=== PATIENT | female | born 1970 | race Caucasian/White ===

== ENCOUNTER 2022-04-15 10:01 | Emergency (ER) | payer OTHER ==
--- OUTSIDE RECORDS SUMMARY | 2022-04-15 10:19 | XMS REPORT | Continuity of Care Document ---
:1970 Author Organization [facility] t Address [address] [place] [address] Care Team Providers Name Role Phone [facility] Primary Care Physician Antelmo Rust Attending Clinician Unavailable Robbie Marina MD Attending Clinician Kayla Olivas Attending Clinician Unavailable Kayla Olivas Admitting Clinician Unavailable Payers Payer Name Policy Type Policy Number Effective Date Expiration Date Ernesto [employer]ONA CHO[employer] POS [id number] 2000 00:00:00 II Problems Condition Condition Condition Status Onset Resolution Last Treating Co mments Source Name Details Category Date Date Treatment Clinician Date Right knee Right knee Disease Active U T pain pain 09-07 Health 00:00: 00 Arthritis Arthritis Disease Active Last UT of right of right - Assessmen [facility] knee knee 00:00: t & Plan: 00 Formattin g of this note might be different from the original. Reassured patient today. Recommend trial of physical therapy home excise program may take Tylenol/o tonja-the-c ounter naproxen or Voltaren gel. Discussed possible CSI injection versus hyaluroni c acid. Has a good prognosis overall recommend home program first. Allergies, Adverse Reactions, Alerts Allergy Allergy Status Severity Reaction(s) Onset Inactive Treating Comm ents Source Name Type Date Date Clinician No Known DA Active [facility]17 [facility] 00:[facility]: d [facility] Social History Social Habit Start Date Stop Date Quantity Comments Source Exposure to Not sure [facility] SARS-CoV-2 (event) Tobacco use and 2021-09-07 2021-09-07 Smokeless tobacco [facility] exposure 00:00:00 00:00:00 non-user Alcohol intake 2021-09-07 2021-09-07 Current drinker of [facility] 00:00:00 00:00:00 alcohol (finding) Sex Ass[birth year] At [birth year] [facility] 00:00:00 00:00:00 Smoking Status Start Date Stop Date Source Never smoked tobacco [facility] Medications Ordered Filled Start Stop Current Ordering Indication Dosage Frequency Signature Comments Components Source Medication Medication Date Date Medication? Clinician (SIG) Name Name No known No No known [place] medications - medication He alth 11:51: s 27 Procedures This patient has no known procedures. Encounters Start End Encounter Admission Attending Care Care Encounter Source Date/Time Date/Time Type Type Clinicians Facility Department ID 2021-11-08 Inpatient Antelmo Rust [facility] [id number] [facility] 07:35:00 [id number] [facility] 2021-09-07 Outpatient [facility] [id number] [place] 10:04:04 Health 2021-11-08 2021-11-08 Emergency EM Antelmo Rust [facility] LA00 [id number] [facility] 07:34:00 08:19:00 62 [facility] 2021-09-07 2021-09-07 [facility] [id number] [place] 11:15:00 12:04:26 Visit NEAL Santiago [id number] H [facility] [id number] [id number] 2021-04-20 2021-04-20 Outpatient BETH Olivas [facility] JUAN [id number] [facility] 12:00:00 12:00:00 Kayla Mercado [facility] Results This patient has no known results.
[2022-04-15] MEDS ORDERED: ASPIRIN 81 MG CHEWABLE TABLET ONE (10:33)
[2022-04-15] MEDS ORDERED: NA CHLORIDE 0.9% 1,000 ML ONE (10:33)
[2022-04-15 11:11] LABS: Absolute Lymphocytes (CBC) 1.6 K/uL (0.7-4.9); Hematocrit 42.6 % (36.0-45.0); Lymphocytes % 17.7 % (15.3-44.8); MCV 86.7 fL (80-100); MPV 7.2 fL (7.6-11.3); RBC Red Blood Cell Count 4.91 M/uL (3.86-4.86)
[2022-04-15 11:12] LABS: Protime INR 1.05
--- NOTE | 2022-04-15 11:23 | RAD REPORT ---
EXAM DESCRIPTION: RAD - Chest Single View - 04/15/2022 11:15 am CLINICAL HISTORY: CHEST PAIN COMPARISON: Chest Pa And Lat (2 Views) dated 11/28/2018; CHEST PA AND LAT 2 VIEW dated 08/02/2014 FINDINGS: Lines: None. Lungs: No evidence of edema or pneumonia. Pleural: No significant pleural effusions or pneumothorax. Cardiac: The heart size is within normal limits. Mediastinum: Within normal limits. Bones: No acute fractures. Remote right-sided rib fractures. Other: None IMPRESSION: No acute cardiopulmonary disease.
[2022-04-15 11:27] LABS: Albumin 4.1 g/dL (3.4-5.0); Bilirubin Direct 0.1 mg/dL (0-0.2); Bilirubin Total 0.4 mg/dL (0.2-1.0); Potassium 3.8 mmol/L (3.5-5.1)
--- NOTE | 2022-04-15 12:02 | RAD REPORT ---
EXAM DESCRIPTION: CTAngio Aorta For Dissection - 04/15/2022 11:37 am CLINICAL HISTORY: CP COMPARISON: No comparisons TECHNIQUE: CTA of the chest, abdomen, and pelvis was performed to evaluate the aorta. MIPS were obta ined All CT scans are performed using dose optimization technique as appropriate and may include automated exposure control or mA/KV adjustment according to patient size. FINDINGS: Thorax: Chest Wall: No abnormal mass Lungs: No acute abnormality. Pleura: No effusions or pneumothorax. Amy/Mediastinum: No lymphadenopathy. Aorta/Pulmonary Arteries: Unremarkable Heart: Normal size. Abdomen/Pelvis: Liver: Hepatic steatosis. Biliary: No biliary ductal dilatation. Stomach: No significant focal abnormality. Duodenum: No significant focal abnormality. Pancreas: No significant abnormality. Spleen: No significant abnormality. Adrenal: No suspicious lesions. Kidney/ureter: No hydronephrosis. Bilateral nonobstructive nephrolithiasis . Retroperitoneum: No retroperitoneal adenopathy. Vascular: No aneurysm. Bowel: No significant focal abnormality. Normal appendix. Peritoneum: No ascites or free air. Small fat containing umbilical hernia. Bladder: Grossly unremarkable. Reproductive: No adnexal masses. Bones: No acute fracture. IMPRESSION: No evidence of aortic aneurysm or dissection. No acute findings within the chest, abdome n, or pelvis.
--- NOTE | 2022-04-15 13:18 | ER ---
Nurse's Notes [facility] Name: Rhea Jack Age: 51 yrs Sex: Female : 1970 Arrival Date: 04/15/2022 Time: 10:05 Bed Treatment Private MD: Diagnosis: Essential (primary) hypertension;Chest pain, unspecified Presentation: 04/15 10:26 Chief complaint: Patient states: Left neck/shoulder pain X 1 week. Last night I began ld1 to have chest pain - today I began feeling tingling sensation in my left arm. Coronavirus screen: At this time, the client does not indicate any symptoms associated with coronavirus-19. Ebola Screen: No symptoms or risks identified at this time. Initial Sepsis Screen: Does the patient meet any 2 criteria? No. Patient's initial sepsis screen is negative. Does the patient have a suspected source of infection? No. Patient's initial sepsis screen is negative. Risk Assessment: Do you want to hurt yourself or someone else? Patient reports no desire to harm self or others. Onset of symptoms was April 15, 2022. 10:26 Method Of Arrival: Ambulatory ld1 10:26 Acuity: TRINO 3 ld1 Triage Assessment: 10:28 General: Appears in no apparent distress. comfortable, Behavior is calm, cooperative, ld1 appropriate for age. Pain: Complains of pain in chest Pain does not radiate. Pain currently is 6 out of 10 on a pain scale. Quality of pain is described as throbbing. EENT: No signs and/or symptoms were reported regarding the EENT system. Neuro: Level of Consciousness is awake, alert, obeys commands, Oriented to person, place, time, situation. Cardiovascular: Reports chest pain, since tingling down left arm Capillary refill < 3 seconds Patient's skin is warm and dry. Rhythm is sinus tachycardia Chest pain is described as mild. Respiratory: Airway is patent Respiratory effort is even, unlabored. GI: Abdomen is flat, non-distended. : No signs and/or symptoms were reported regarding the genitourinary system. Derm: No signs and/or symptoms reported regarding the dermatologic system. Musculoskeletal: No signs and/or symptoms reported regarding the musculoskeletal system. Historical: - Allergies: 10: No Known Allergies; ld1 - Home Meds: 10:28 None [Active]; ld1 - PMHx: 10:28 None; ld1 - PSHx: 10:28 None; ld1 - Immunization history:: Adult Immunizations up to date, Client reports receiving the 2nd dose of the Covid vaccine. - Social history:: Smoking status: Patient denies any tobacco usage or history of. Patient/guardian denies using alcohol. - Family history:: not pertinent. Screenin:43 Abuse screen: Denies threats or abuse. Denies injuries from another. Nutritional ph screening: No deficits noted. Tuberculosis screening: No symptoms or risk factors identified. Fall Risk None identified. Assessment: 10:30 General: Appears in no apparent distress. comfortable, Behavior is calm, cooperative, mb9 appropriate for age. Pain: Complains of pain in chest Pain radiates to left shoulder Pain currently is 6 out of 10 on a pain scale. Quality of pain is described as pressure. 10:30 Neuro: Level of Consciousness is awake, alert, obeys commands, Oriented to person, mb9 place, time, situation, Appropriate for age Conference Service Coordinator are equal bilaterally Moves all extremities. Gait is steady, Speech is normal, Facial symmetry appears normal, Pupils are PERRLA, paresthesias in left arm. Cardiovascular: Heart tones S1 S2 present Pulses are all present. Rhythm is sinus tachycardia. Respiratory: Airway is patent Respiratory effort is even, unlabored, Respiratory pattern is regular, symmetrical, Breath sounds are clear bilaterally. GI: Abdomen is flat, Patient currently denies epigastric pain, nausea, pain. : No signs and/or symptoms were reported regarding the genitourinary system. EENT: No signs and/or symptoms were reported regarding the EENT system. Derm: Skin is pink, warm \T\ dry. Musculoskeletal: Range of motion: intact in all extremities. 11:30 Reassessment: pt taken to CT via wheelchair. mb9 12:15 General: Appears in no apparent distress. comfortable, Behavior is calm, cooperative, mb9 appropriate for age. Pain: Complains of pain in chest Pain radiates to left arm. Neuro: Level of Consciousness is awake, alert, obeys commands, Oriented to person, place, time, situation, Appropriate for age. Cardiovascular: Heart tones S1 S2 present Rhythm is regular. Respiratory: Airway is patent. Vital Signs: 10:26 BP 179 / 88; Pulse 102; Resp 18; Temp 98.2(O); Pulse Ox 100% on R/A; Weight 71.21 kg; ld1 Height 5 ft. 7 in. (170.18 cm); Pain 6/10; 10:30 BP 150 / 86; Pulse 101; Resp 18; Pulse Ox 100% on R/A; mb9 11:30 BP 148 / 90; Pulse 80; Resp 21; Pulse Ox 100% on R/A; mb9 12:16 BP 159 / 94; Pulse 80; Resp 14; Pulse Ox 100% ; mb9 10:26 Body Mass Index 24.59 (71.21 kg, 170.18 cm) ld1 ED Course: 10:05 Patient arrived in ED. rg4 10:22 Wade Smith MD is Attending Physician. monik 10:24 Blanca Hung, PEPE is Primary Nurse. mb9 10:28 Triage completed. ld1 10:28 Arm band placed on right wrist. ld1 11:06 EKG done, by ED staff, reviewed by Wade Smith MD. mb9 11:17 XRAY Chest (1 view) In Process Unspecified. EDMS 11:39 CT Aorta for Dissection In Process Unspecified. EDMS 13:17 Reuben Lepe MD is Referral Physician. [facility] 13:43 Patient has correct armband on for positive identification. Bed in low position. Call ph light in reach. Client placed on continuous cardiac and pulse oximetry monitoring. NIBP monitoring applied. 13:43 Patient maintains SpO2 saturation greater than 95% on room air. ph Administered Medications: 10:35 Drug: Aspirin 81 mg Route: PO; mb9 11:27 Follow up: Response: No adverse reaction mb9 11:06 Drug: NS 0.9% 1000 ml Route: IV; Rate: 125 ml/hr; Site: right forearm; mb9 14:19 Drug: ToPROL XL (metoprolol SUCCINATE) 25 mg Route: PO; ph Medication: 13:43 VIS not applicable for this client. ph Outcome: 13:18 Discharge ordered by . monik 14:25 Patient left the ED. ph Signatures: Dispatcher [employer] EDMS Wade Smith MD MD cha Hall, Patricia, RN RN ph Garcia, Rubi rg4 Irais Levi RN RN ld1 Blanca Hung RN RN mb9
--- NOTE | 2022-04-15 13:19 | EDPHYS ---
Physician Documentation [facility] Name: Rhea Jack Age: 51 yrs Sex: Female : 1970 Arrival Date: 04/15/2022 Time: 10:05 Bed Treatment Private MD: ED Physician Wade Smith HPI: 04/15 13:14 This 51 yrs old Female presents to ER via Ambulatory with complaints of Chest monik Pain, Back Pain, Shoulder Pain. 13:14 The patient or guardian reports chest pain that is located primarily in the anterior monik chest wall, left. Onset: 3 day(s) ago. The pain does not radiate. Associated signs and symptoms: The patient has no apparent associated signs or symptoms. The chest pain is described as a pressure. Duration: The patient or guardian reports multiple episodes, that wax and wane, with no pattern. Severity of pain: At its worst the pain was mild in the emergency department the pain has resolved. Historical: - Allergies: 10:28 No Known Allergies; ld1 - Home Meds: 10: None [Active]; ld1 - PMHx: : None; ld1 - PSHx: 10:28 None; ld1 - Immunization history:: Adult Immunizations up to date, Client reports receiving the 2nd dose of the Covid vaccine. - Social history:: Smoking status: Patient denies any tobacco usage or history of. Patient/guardian denies using alcohol. - Family history:: not pertinent. ROS: 13:14 Constitutional: Negative for fever, chills, and weight loss, Eyes: Negative for injury, monik pain, redness, and discharge, ENT: Negative for injury, pain, and discharge, Neck: Negative for injury, pain, and swelling, Respiratory: Negative for shortness of breath, cough, wheezing, and pleuritic chest pain, Abdomen/GI: Negative for abdominal pain, nausea, vomiting, diarrhea, and constipation, Back: Negative for injury and pain, : Negative for injury, bleeding, discharge, and swelling, MS/Extremity: Negative for injury and deformity, Skin: Negative for injury, rash, and discoloration, Neuro: Negative for headache, weakness, numbness, tingling, and seizure, Psych: Negative for depression, anxiety, suicide ideation, homicidal ideation, and hallucinations, Allergy/Immunology: Negative for hives, rash, and allergies, Endocrine: Negative for neck swelling, polydipsia, polyuria, polyphagia, and marked weight changes, Hematologic/Lymphatic: Negative for swollen nodes, abnormal bleeding, and unusual bruising. 13:14 Cardiovascular: Positive for chest pain. Exam: 13:14 Constitutional: This is a well developed, well nourished patient who is awake, alert, monik and in no acute distress. Head/Face: Normocephalic, atraumatic. Eyes: Pupils equal round and reactive to light, extra-ocular motions intact. Lids and lashes normal. Conjunctiva and sclera are non-icteric and not injected. Cornea within normal limits. Periorbital areas with no swelling, redness, or edema. ENT: Nares patent. No nasal discharge, no septal abnormalities noted. Tympanic membranes are normal and external auditory canals are clear. Oropharynx with no redness, swelling, or masses, exudates, or evidence of obstruction, uvula midline. Mucous membranes moist. Neck: Trachea midline, no thyromegaly or masses palpated, and no cervical lymphadenopathy. Supple, full range of motion without nuchal rigidity, or vertebral point tenderness. No Meningismus. Chest/axilla: Normal chest wall appearance and motion. Nontender with no deformity. No lesions are appreciated. Cardiovascular: Regular rate and rhythm with a normal S1 and S2. No gallops, murmurs, or rubs. Normal PMI, no JVD. No pulse deficits. Respiratory: Lungs have equal breath sounds bilaterally, clear to auscultation and percussion. No rales, rhonchi or wheezes noted. No increased work of breathing, no retractions or nasal flaring. Abdomen/GI: Soft, non-tender, with normal bowel sounds. No distension or tympany. No guarding or rebound. No evidence of tenderness throughout. Back: No spinal tenderness. No costovertebral tenderness. Full range of motion. Skin: Warm, dry with normal turgor. Normal color with no rashes, no lesions, and no evidence of cellulitis. MS/ Extremity: Pulses equal, no cyanosis. Neurovascular intact. Full, normal range of motion. Neuro: Awake and alert, GCS 15, oriented to person, place, time, and situation. Cranial nerves II-XII grossly intact. Motor strength 5/5 in all extremities. Sensory grossly intact. Cerebellar exam normal. Normal gait. Psych: Awake, alert, with orientation to person, place and time. Behavior, mood, and affect are within normal limits. 13:14 ECG was reviewed by the Attending Physician. 13:14 Musculoskeletal/extremity: DVT Exam: No signs of deep vein thrombosis. no pain, no swelling, no tenderness, negative Homans' sign noted on exam, no appreciated bluish discoloration, no erythema, no increased warmth. Vital Signs: 10:26 BP 179 / 88; Pulse 102; Resp 18; Temp 98.2(O); Pulse Ox 100% on R/A; Weight 71.21 kg; ld1 Height 5 ft. 7 in. (170.18 cm); Pain 6/10; 10:30 BP 150 / 86; Pulse 101; Resp 18; Pulse Ox 100% on R/A; mb9 11:30 BP 148 / 90; Pulse 80; Resp 21; Pulse Ox 100% on R/A; mb9 12:16 BP 159 / 94; Pulse 80; Resp 14; Pulse Ox 100% ; mb9 10:26 Body Mass Index 24.59 (71.21 kg, 170.18 cm) ld1 MDM: 10:22 Patient medically screened. monik 13:16 Differential diagnosis: abnormal EKG, acute myocardial infarction, acute pericarditis, monik anxiety, chest wall pain, Cholelithiasis costochondritis, hiatal hernia, pancreatitis, peptic ulcer disease, pulmonary embolus, stable angina, unstable angina. HEART Score: History: Slightly Suspicious (0), ECG: Normal (0), Age: > 45 and < 65 years (1), Risk Factors: No Risk Factors Known (0), Troponin: < or = 1 x Normal Limit (0). The patient was given aspirin in the Emergency Department. The patient's deep vein thrombosis risk score was calculated as follows: Total Score: 0. This patient was found to be at low risk for a deep vein thrombosis by using the Well's assessment criteria. The patient's pulmonary embolism risk score was calculated as follows: Total Score: 0-2 points. This patient was found to be at low risk for a pulmonary embolism by using the Well's assessment criteria. DEWAYNE Risk Score: TOTAL SCORE = 0. Data reviewed: vital signs, nurses notes, lab test result(s), EKG, radiologic studies, CT scan, plain films. Data interpreted: monitoring manager: rate is 80 beats/min, rhythm is regular, Pulse oximetry: on room air is 100 %. Counseling: I had a detailed discussion with the patient and/or guardian regarding: the historical points, exam findings, and any diagnostic results supporting the discharge/admit diagnosis, the presence of at least one elevated blood pressure reading (>120/80) during this emergency department visit, lab results. 04/15 10:24 Order name: Basic Metabolic Panel; Complete Time: 12:48 [facility] 04/15 10:24 Order name: CBC with Diff; Complete Time: 12:48 [facility] 04/15 10:24 Order name: LFT's; Complete Time: 12:48 [facility] 04/15 10:24 Order name: Magnesium; Complete Time: 12:48 [facility] 04/15 10:24 Order name: NT PRO-BNP; Complete Time: 12:48 [facility] 04/15 10:24 Order name: PT-INR; Complete Time: 12:48 [facility] 04/15 10:24 Order name: Troponin HS; Complete Time: 12:48 [facility] 04/15 10:24 Order name: XRAY Chest (1 view); Complete Time: 12:48 [facility] 04/15 10:24 Order name: Lipase; Complete Time: 12:48 [facility] 04/15 10:24 Order name: CT Aorta for Dissection; Complete Time: 12:48 [facility] 04/15 10:24 Order name: EKG; Complete Time: 10:26 04/15 10:24 Order name: Cardiac monitoring; Complete Time: 10:30 04/15 10:24 Order name: EKG - Nurse/Tech; Complete Time: 11:06 [facility] 04/15 10:24 Order name: IV Saline Lock; Complete Time: 11:06 [facility] 04/15 10:24 Order name: Labs collected and sent; Complete Time: 11:06 [facility] 04/15 10:24 Order name: O2 Per Protocol; Complete Time: 10:30 [facility] 04/15 10:24 Order name: O2 Sat Monitoring; Complete Time: 10:30 [facility] EC:14 Rate is 69 beats/min. Rhythm is regular. QRS Rapelje is Normal. DC interval is normal. QRS monik interval is normal. QT interval is normal. No Q waves. T waves are Normal. No ST changes noted. Clinical impression: Normal ECG and No evidence of ischemia. Interpreted by me. Reviewed by me. Administered Medications: 10:35 Drug: Aspirin 81 mg Route: PO; mb9 11:27 Follow up: Response: No adverse reaction 9 11:06 Drug: NS 0.9% 1000 ml Route: IV; Rate: 125 ml/hr; Site: right forearm; mb9 14:19 Drug: ToPROL XL (metoprolol SUCCINATE) 25 mg Route: PO; ph Disposition Summary: 04/15/22 13:18 Discharge Ordered Location: Home monik Problem: new monik Symptoms: have improved monik Condition: Stable monik Diagnosis - Essential (primary) hypertension monik - Chest pain, unspecified monik Followup: monik - With: Private Physician - When: 2 - 3 days - Reason: Recheck today's complaints, Continuance of care, Re-evaluation by your physician Followup: monik - With: Reuben Lepe MD - When: 2 - 3 days - Reason: Recheck today's complaints, Re-evaluation by your physician Discharge Instructions: - Discharge Summary Sheet monik - Nonspecific Chest Pain, Adult monik - Hypertension, Adult monik - Nonspecific Chest Pain, Adult, [id number] monik - Hypertension, Adult, [id number] monik - How to Take Your Blood Pressure, [id number] monik - Aspirin and Your Heart monik - Managing Your Hypertension monik Forms: - Medication Reconciliation Form monik - Thank You Letter monik - Antibiotic Education monik - Prescription Opioid Use [facility] Prescriptions: - Pepcid 20 mg Oral Tablet - take 1 tablet by ORAL route every 12 hours for 10 days; 20 tablet; Refills: 0, monik Product Selection Permitted - Toprol XL 25 mg Oral Tablet - take 1 tablet by ORAL route once daily; 20 tablet; Refills: 0, Product [facility] Selection Permitted Signatures: Dispatcher [employer] Wade Witt MD MD cha Hall, Patricia RN RN ph Irais Levi RN RN ld1 Blanca Hung RN RN mb9
[2022-04-15 14:34] VITALS: TEMP 98.2; O2SAT 100
[2022-04-15 14:38] VITALS: BP 159/94
== END 2022-04-15 14:25 | disposition home or self-care (01) ==
LOC: ER 10:01
DX: R07.89 Other chest pain (principal); I10 Essential (primary) hypertension
CPT/HCPCS: 93005; 85025; 80048; 36415; 83735; 85610; 80076; 84484; 83690; 83880; 71275; 74175; 71045; 99284; Q9967; J7030